=== PATIENT | male | born 1965 | race Caucasian/White ===

== ENCOUNTER 2019-05-16 10:27 | Emergency (ER) | payer OTHER ==
[~2019-05-16] VITALS: Ht 175.3 cm; Wt 109.8 kg
[2019-05-16] MEDS ORDERED: LISINOPRIL10 MG PO (10:34)
[2019-05-16] MEDS ORDERED: ZOCOR20 MG PO (10:34)
[2019-05-16] MEDS ORDERED: NEXIUM40 MG PO (10:34)
[2019-05-16] MEDS ORDERED: B COMPLEX1 EACH PO (10:35)
[2019-05-16] MEDS ORDERED: FISH OIL 1,001000 M2 PO (10:35)
[2019-05-16] MEDS ORDERED: ASPIR 8181 MG PO (10:35)
[2019-05-16] MEDS ORDERED: CENTRUM SILVER1 EAC2 PO (10:35)
[2019-05-16 10:46] LABS: ABSOLUTE BASOPHILS 0.1 thou/uL (0.0-0.2); ABSOLUTE EOSINOPHILS 0.3 thou/uL (0.0-0.7); ABSOLUTE LYMPHOCYTES 2.2 thou/uL (0.8-5.3); ABSOLUTE MONOCYTES 0.8 thou/uL (0.0-1.2); ABSOLUTE NEUTROPHILS 5.1 thou/uL (1.6-8.1); BASOPHILS 0.7 %; EOSINOPHILS 3.6 %; HEMATOCRIT 50.2 % (42.0-52.0); HEMOGLOBIN 17.7 gm/dL (14.0-18.0); LYMPHOCYTES 25.7 %; MCH 32.9 pg (26.0-34.0); MCHC 35.3 g/dL (28.0-37.0); MCV 93.1 fL (80.0-100.0); MONOCYTES 9.6 %; NUCLEATED RBCS 0 /100WBC; PLATELET COUNT* 264 thou/uL (150-400); POLYS 60.4 %; RBC 5.39 mil/uL (4.50-6.00); RDW-CV 13.4 % (10.5-14.5); WBC 8.5 thou/uL (4.0-11.0)
[2019-05-16 10:51] LABS: ANION GAP 9 mmol/L (7-16); BUN 17 mg/dL (7-18); CALCIUM 9.2 mg/dL (8.5-10.1); CHLORIDE 102 mmol/L (98-107); CO2 30 mmol/L (21-32); CREATININE 1.2 mg/dL (0.6-1.3); GLUCOSE 98 mg/dL (70-99); POTASSIUM 4.3 mmol/L (3.5-5.1); SODIUM 141 mmol/L (136-145)
[2019-05-16 10:52] LABS: APTT 25.4 Seconds (25.0-31.3)
[2019-05-16 11:04] LABS: ALBUMIN 3.9 g/dL (3.4-5.0); ALKALINE PHOSPHATASE 69 U/L (46-116); CK-MB MASS 1.2 ng/mL (<0.5-3.6); LIPASE 111 U/L (73-393); MAGNESIUM 2.1 mg/dL (1.8-2.4); NT-PRO BRAIN NAT PEPTIDE 7 pg/mL (<300); SGOT 28 U/L (15-37); SGPT 53 U/L (30-65); TOTAL BILIRUBIN 0.4 mg/dL (<0.1-1.0); TOTAL PROTEIN 7.8 g/dL (6.4-8.2); TROPONIN-I LEVEL <0.06 ng/mL (<0.06)
[2019-05-16 11:30] VITALS: BP 131/87
--- NOTE | 2019-05-16 16:27 | EKG ---
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
== END 2019-05-16 11:30 | disposition home or self-care (01) ==
LOC: M.ERS 10:27
PROVIDERS: Family Medicine
DX: I10 Essential (primary) hypertension (principal); Z85.528 Personal history of other malignant neoplasm of kidney